=== PATIENT | female | born 1945 | race Caucasian/White ===

== ENCOUNTER → 2016-12-23 | Day surgery (SDC) | payer MEDICARE ==
[~2016-12-23] MED LIST: ACETAMINOPHEN PO; ACULAR10 ML; ACULAR10 ML OP; ALLEGRA PO; ANTI-DIARRHEAL2 M1 PO; ASPIRIN PO; ASPIRIN81 M2 PO; ASPIRIN81 MG PO; CALCIUM 600 +1 EAC1 PO; CARDIZEM60 MG PO; CELLCEPT500 MG PO; COUMADIN2.5 MG; COUMADIN2.5 MG PO; CRESTOR PO; DILTIAZEM 24HR120 MG PO; FOLIC ACID PO; FOLIC ACID1 MG PO; HUMALOG100 U/ML; HUMALOG100 U/ML SUBQ; HUMALOG100 UNIT/1; HYDRALAZINE HCL25 MG PO; IMDUR PO; IMODIUM2 MG PO; KAYEXALATE453.6 GM PO; LANTUS100 U/ML; LANTUS100 UNITS/ SUBQ; LEVEMIR SUBQ; LEVEMIR100 UNITS/; LEVEMIR100 UNITS/ SUBQ; LEVOXYL125 MC1 PO; LIPITOR PO; LIPITOR40 MG PO; LOMOTIL TABLET1 TAB PO; LOMOTIL WHITE2.5 M1 PO; LORTAB 10-3251 EACH PO; NEPHRO; NEPHROCAPS1 CAP PO; NEURONTIN100 MG PO; NIFEDICAL PO; NOVALOG; NOVOLOG100 U/ML; PERCOCET5/325 PO; PHENERGAN12.5 MG PO; PHENERGAN25 MG/M1 PO; PHOSLO667 MG PO; PRILOSEC PO; PROCARDIA90 MG/BOTT PO; PROCRIT SUBQ; RENAL SOFTGEL1 MG PO; RENO; SEA MIST44 ML; SOD BICARBONATE PO; SODIUM BICARBO650 MG PO; SYNTHROID PO; SYNTHROID112 MCG PO; TOPROL XL PO; TOPROL XL100 MG PO; VITAMIN D1000 UNI2 PO; WELCHOL625 MG PO; ZETIA PO; [UNRECOGNIZED DRUG - OTHER]
--- NOTE | ~2016-12-23 | OR ---
Unit #: [id number] #: [id number] Patient: DAVID MEHTA [id number] [address] [address] [id number] O MR#: [id number] NAME: DAVID MEHTA ROOM: Date of Procedure: 12/23/2016 Admission Date: 12/23/2016 Surgeon: Carlos Gross M.D. : 1945 Attending Physician: Sp Gross Primary Care Physician: Braulio Reid M.D. [facility] OPERATIVE NOTE PROCEDURE PERFORMED Lumbar epidural steroid injection under x-ray guided needle placement with provider administered conscious sedation. PREOPERATIVE DIAGNOSES 1. Acute lumbar radiculitis. 2. Spinal stenosis, lumbosacral spine. 3. Herniated disk, L5-S1. 4. Facet arthrosis, L4-L5. 5. Degenerative joint disease, lumbosacral spine. 6. Degenerative disk disease, lumbosacral spine. INDICATIONS FOR PROCEDURE The patient presents today with a multiyear history of chronic lumbar radicular and chronic facet arthralgia pain that has been intermittent up until the past year, where it advanced in a crescendo pattern and has failed to respond to conservative measures including medication and physical therapy as tolerated. The patient presents today stating that her pain has reached a level that it is interfering in her levels of daily living and is in possession of MRI report, which shows L4-L5 and L5-S1 disease. After discussing risks and benefits of proceeding today with an L5-S1 epidural steroid injection and return on 01/08/2017, the patient now agreed this would be the appropriate course of action. We also agreed that a referral to [facility] for potential L4-L5 radiofrequency ablation would be the appropriate course of action. DESCRIPTION OF PROCEDURE Following these discussions, the patient was taken to the operating room where she was prepped and draped in a sterile manner. Standard monitors were applied. She was sedated with 2 mg of IV Versed and the L5-S1 level was accessed using loss of resistance technique and x-ray guidance. Needle placement was confirmed with injection of 2 mL of Omnipaque. There was good superior and inferior flow at this L5-S1 placed needle. Total x-ray time was 9 seconds. Following successful needle placement confirmation, the patient received an injectate containing 4 mL of normal saline and 80 mg of methylprednisolone. She tolerated this procedure well. She was discharged home with followup instructions, which are included above. Dictated by... Carlos Gross M.D. Unit #: [id number] #: [id number] Patient: ADVID MEHTA JRG/modl TD: 12/23/2016 15:30 JOB #: [id number] CC: Rolando Rodriguez M.D. [facility]ENTER OPERATIVE NOTE Page 1 of 1 X Sp Gross MD X PROCEDURE OPERATIVE NOTE
== END | disposition home or self-care (01) ==
LOC: CCSC 12-18 13:45
DX: G89.29 Other chronic pain (principal); M51.17 Intervertebral disc disorders with radiculopathy, lumbosacral region; M48.07 Spinal stenosis, lumbosacral region; M47.26 Other spondylosis with radiculopathy, lumbar region; M47.27 Other spondylosis with radiculopathy, lumbosacral region; E03.9 Hypothyroidism, unspecified; N19 Unspecified kidney failure; I25.10 Atherosclerotic heart disease of native coronary artery without angina pectoris; Z88.1 Allergy status to other antibiotic agents; Z79.82 Long term (current) use of aspirin; Z79.01 Long term (current) use of anticoagulants; Z79.4 Long term (current) use of insulin; Z79.899 Other long term (current) drug therapy; Z90.49 Acquired absence of other specified parts of digestive tract; Z98.51 Tubal ligation status; Z99.2 Dependence on renal dialysis; Z95.5 Presence of coronary angioplasty implant and graft; Z94.0 Kidney transplant status
CPT/HCPCS: 82947; J1040; J2250

== ENCOUNTER → 2017-01-15 | Day surgery (SDC) | payer MEDICARE ==
--- NOTE | ~2017-01-15 | OR ---
Unit #: [id number] #: [id number] Patient: DAVID MEHTA [id number] [place], [place] [address] [id number] O MR#: [id number] NAME: DAVID MEHTA ROOM: Date of Procedure: 01/15/2017 Admission Date: 01/15/2017 Surgeon: Carlos Gross M.D. : 1945 Attending Physician: Carlos Gross M.D. Primary Care Physician: Braulio Reid M.D. [facility]ENTER OPERATIVE NOTE PROCEDURE PERFORMED Lumbar epidural steroid injection under x-ray guided needle placement with provider administered conscious sedation. PREOPERATIVE DIAGNOSES 1. Acute lumbar radiculitis. 2. Herniated disk, L4-5. 3. Herniated disk, L5-S1. 4. Spinal stenosis, lumbosacral spine. 5. Degenerative disk disease, lumbosacral spine. 6. Degenerative joint disease, lumbosacral spine. 7. Facet arthrosis, lumbosacral spine. 8. Facet arthralgia, lumbosacral spine. INDICATIONS FOR PROCEDURE The patient presents today status post one previous lumbar approach epidural steroid injection for an acute radiculitis, which had failed to respond to conservative therapy. The patient states she got excellent relief with almost complete resolution of her symptoms. However, in the intervening time between her initial visit and her return today, the patient states she has had a return of symptoms to the point that they are uncomfortable interfering with her activities of daily living. She also noted complaints compatible with facet arthralgia during her intervening absence of radicular pain. Today, we discussed a repeat epidural steroid injection at the L5-S1 level with the possibility of a dual needle technique if we do not get good L4-5 coverage as well. The patient agreed this would be the appropriate course of action. We also talked about referral to [facility] for treatment of her facet arthralgia. DESCRIPTION OF PROCEDURE Following these discussions, the patient was taken to the operating room, where she was prepped and draped in a sterile manner. Standard monitors were applied. She was sedated with 1 mg of IV Versed and lumbar epidural space accessed at the L5-S1 level using loss of resistance technique and x-ray guidance. Needle placement was confirmed with injection of 2 mL of Omnipaque. There was good superior and inferior flow to the extent that we felt L5-S1 will be a single injection level. Following successful needle placement confirmation, which required an x-ray time of 5 seconds, the patient received an injectate containing 4 mL of normal saline and 80 mg of methylprednisolone. She tolerated this procedure well. She was discharged home with followup instructions, which included an offer to return to this clinic as early as 04/23/2017 if we could be of further service to her. Unit #: [id number] #: [id number] Patient: DAVID MEHTA Dictated by... Carlos Gross M.D. JRG/lawrence TD: 01/16/2017 07:05 JOB #: [id number] CC: Rolando Rodriguez M.D. [facility]ENTER OPERATIVE NOTE Page 1 of 1 X Sp Gross MD X PROCEDURE OPERATIVE NOTE
== END | disposition home or self-care (01) ==
LOC: CCSC 01-08 09:30
DX: M51.17 Intervertebral disc disorders with radiculopathy, lumbosacral region (principal); M51.16 Intervertebral disc disorders with radiculopathy, lumbar region; M47.27 Other spondylosis with radiculopathy, lumbosacral region; M48.07 Spinal stenosis, lumbosacral region; E03.9 Hypothyroidism, unspecified; N19 Unspecified kidney failure; Z88.1 Allergy status to other antibiotic agents; Z88.8 Allergy status to other drugs, medicaments and biological substances; Z79.82 Long term (current) use of aspirin; Z79.4 Long term (current) use of insulin; Z79.01 Long term (current) use of anticoagulants; Z99.2 Dependence on renal dialysis; Z95.5 Presence of coronary angioplasty implant and graft; Z90.49 Acquired absence of other specified parts of digestive tract; Z98.51 Tubal ligation status; Z94.0 Kidney transplant status; Z98.890 Other specified postprocedural states
CPT/HCPCS: J1040; J2250